=== PATIENT | female | born 1940 | race Caucasian/White ===

== ENCOUNTER 2023-05-01 11:52 | Day surgery (SDC) | payer MEDICARE ==
[~2023-05-01] VITALS: Ht 160 cm; Wt 50.4 kg
[~2023-05-01 11:52] MED LIST: CARB25TA9 PO; LEXA5TAB13 PO; LIDOCAINE 2% 100MG/5ML SDV (FOR ANES.) As Ordered ONE; ONDANSETRON 4MG 2ML VIAL As Ordered ONE; ceFAZolin SOD 2 GM in IV 1 EA IV ONE; fentaNYL 100 MCG/2 ML INJECTION As Ordered ONE; propofoL 200 MG/20 ML VIAL As Ordered ONE
[2023-05-01] MEDS ORDERED: LR 1,000 ML IV SCH (12:35)
[2023-05-01] MEDS ORDERED: ISOVUE-300 61% 100ML VIAL As Ordered ONE (13:44)
[2023-05-01] MEDS ORDERED: ACETAMINOPHEN 1000MG 100ML IV BAG As Ordered ONE (14:23)
[2023-05-01] MEDS ORDERED: KETOROLAC 60MG 2ML VIAL As Ordered ONE (15:06)
[2023-05-01] MEDS ORDERED: oxyCODONE 5MG TAB PO PRN (15:15)
[2023-05-01] MEDS ORDERED: ONDANSETRON 4MG 2ML VIAL IV PRN (15:15)
[2023-05-01] MEDS ORDERED: fentaNYL 100 MCG/2 ML INJECTION IV PRN (15:15)
[2023-05-01] MEDS ORDERED: OXYB-54 PO (15:32)
[2023-05-01] MEDS ORDERED: PERCOCET 5MG/325MG TAB PO PRN (16:05)
[2023-05-01] MEDS: oxyBUTYnin 5 MG TAB PO PRN (16:05)
[2023-05-01 16:42] VITALS: BP 172/80; TEMP 97.9; O2SAT 99
== END 2023-05-01 16:54 | disposition home or self-care (01) ==
LOC: M SDC 11:52
PROVIDERS: ATTEND Urology
DX: N13.2 Hydronephrosis with renal and ureteral calculous obstruction (principal); R31.0 Gross hematuria; G20.A1 Parkinson's disease without dyskinesia, without mention of fluctuations; Z79.899 Other long term (current) drug therapy; Z90.49 Acquired absence of other specified parts of digestive tract
CPT/HCPCS: 52332; 52352; 76000; 82365; C1769; C1894; C2617; J0131; J1100; J1885; J2405; J3010; Q9967